=== PATIENT | female | born 1950 | race Caucasian/White ===

== ENCOUNTER 2019-01-14 07:47 | Day surgery (SDC) | payer MEDICARE, BC ==
[2019-01-14] MEDS ORDERED: PROPOFOL 10 MG/ML VIAL IV ONE (07:48)
[2019-01-14] MEDS ORDERED: FENTANYL PF 100MCG/2ML VIAL IV ONE (07:48)
[2019-01-14] MEDS ORDERED: LIDOCAINE 2% MDV (20MG/ML) 20ML VIAL IV ONE (07:48)
--- NOTE | 2019-01-15 08:20 | Operative Note ---
OPERATION: ESOPHAGOGASTRODUODENOSCOPY with biopsy. INDICATION: Postprandial epigastric pain, chronic gastroesophageal reflux with pyrosis and early satiety, rule out upper GI tract pathology. ANESTHESIA: Intravenous sedation was administered by the department of anesthesiology and included Diprivan titrated to effect. PROCEDURE: Following informed consent from this alert individual, including a discussion of the risks and benefits of the procedure and an opportunity for the patient to ask questions, the patient was in the left lateral decubitus position. The Olympus [id number] video endoscope was inserted into the esophagus without resistance. The proximal esophagus had a normal appearance with normal folds and distensibility. The mid esophagus likewise was free from changes. The distal esophageal segment demonstrated some mild erythema and edema with very slight irregularity of the squamocolumnar junction. There were no ulcerations noted. The stomach was entered and found to be completely unremarkable. The pylorus was patent. The duodenal bulb, sweep and descending duodenum were examined in a serial fashion and found to be normal. The endoscope was then drawn back into the body of the stomach. Retroflexion accomplished following air insufflation failed to demonstrate any changes. The endoscope was then straightened and withdrawn to the distal esophagus where biopsies were obtained from the GE junction. After biopsy, the endoscope was then drawn back into a normal mid and proximal esophagus and removed from the patient. The patient tolerated the procedure well and was returned to the recovery area in stable condition. IMPRESSION: Mild nonulcerative distal esophagitis. Biopsies taken. RECOMMENDATION: The patient will continue on acid blockade therapy with Pepcid 20 mg twice daily. She will follow up with primary care physician. Further recommendations may be forthcoming pending results of biopsy. As always, thank you for allowing me to participate in the care of your patient. JUDITH
== END 2019-01-14 09:20 | disposition home or self-care (01) ==
LOC: HOP 07:47
PROVIDERS: ATTEND Internal Medicine Gastroenterology
DX: R10.13 Epigastric pain (principal); R68.81 Early satiety; K21.0 Gastro-esophageal reflux disease with esophagitis
CPT/HCPCS: 43239; 00731; 88305; 88313; J3010

== ENCOUNTER 2019-02-06 22:02 | Emergency (ER) | payer MEDICARE, BC ==
[2019-02-06] MEDS ORDERED: 0.9 % SODIUM CHLORIDE 1,000 ML BAG IV ONE (22:31)
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
[2019-02-06 23:00] LABS: ABSOLUTE NEUTROPHIL COUNT 5.51; BASO % 0.2 % (0-6); HEMATOCRIT 41.8 % (35.0-47.0); HEMOGLOBIN 13.5 gm/dl (11.6-16.0); LYMPH % 12.2 % (16-45); MEAN CELL VOLUME 92.1 fl (81-97); MEAN CORPUSCULAR HEMOGLOBIN 29.7 pg (27-33); MEAN CORPUSCULAR HGB CONC 32.3 g/dl (32-36); MONO % 0.2 % (0-9); PLATELET COUNT 216 K/uL (130-400); RED BLOOD COUNT 4.54 M/uL (3.80-5.40); RED CELL DISTRIBUTION WIDTH 13.7 % (11.5-14.5); WHITE BLOOD COUNT W/O DIFF 6.3 K/uL (4.2-12.2)
[2019-02-06 23:13] LABS: BLOOD UREA NITROGEN 19 mg/dL (8-23); EST GLOMERULAR FILTRATION RATE 58 mL/min
[2019-02-06] MEDS ORDERED: HUMULIN R 100 UNIT/ML VIAL SQ ONE (23:15)
[2019-02-06 23:16] LABS: GLUCOSE,RANDOM 349 mg/dL (74-109)
[2019-02-06 23:21] LABS: ACETONE,SERUM NEGATIVE (NEGATIVE)
[2019-02-06 23:26] LABS: ANISOCYTOSIS 1+; PLATELET ESTIMATE NORMAL (NORMAL)
[2019-02-06] MEDS ORDERED: ONDANSETRON HCL IV 4 MG/2 ML VIAL IVP ONE (23:49)
[2019-02-07 01:25] LABS: URINE APPEARANCE CLEAR; URINE BILIRUBIN NEGATIVE (NEGATIVE); URINE BLOOD NEGATIVE (NEGATIVE); URINE COLOR YELLOW; URINE KETONE TRACE (NEGATIVE); URINE LEUKOCYTE ESTERASE NEGATIVE (NEGATIVE); URINE NITRITE NEGATIVE (NEGATIVE); URINE PROTEIN NEGATIVE (NEGATIVE); URINE UROBILINOGEN 0.2 E.U./dL (0.20 - 1.00)
[2019-02-07 01:28] LABS: URINE GLUCOSE (UA) >=1000 mg/dL (NEGATIVE)
== END 2019-02-07 00:09 | disposition home or self-care (01) ==
LOC: ER 22:02
DX: E11.65 Type 2 diabetes mellitus with hyperglycemia (principal); R53.1 Weakness; Z79.84 Long term (current) use of oral hypoglycemic drugs
CPT/HCPCS: 36416; 80048; 81003; 82009; 82800; 82948; 83036; 85027; 96361; 96372; 96374; 99284; J2405; J7030